=== PATIENT | female | born 2000 | race African-American/Black ===

== ENCOUNTER 2020-05-09 18:23 | Emergency (ER) | payer OTHER ==
[~2020-05-09] VITALS: Ht 160 cm; Wt 65.8 kg
[2020-05-09 19:23] VITALS: BP 108/60
== END 2020-05-09 19:27 | disposition home or self-care (01) ==
LOC: ER 18:23
DX: S27.818A Other injury of esophagus (thoracic part), initial encounter (principal); X58.XXXA Exposure to other specified factors, initial encounter; Y93.89 Activity, other specified; Y92.89 Other specified places as the place of occurrence of the external cause; Y99.8 Other external cause status